=== PATIENT | female | born 1980 | race Caucasian/White ===

== ENCOUNTER → 2020-12-28 08:20 | Outpatient (BNVA) | payer BC, SELFPAY | PROVIDERS: Family Provider Obstetrics & Gynecology; PCP Obstetrics & Gynecology; Visit Provider Obstetrics & Gynecology | DX: Z01.419 Encounter for gynecological examination (general) (routine) without abnormal findings (principal) | CPT/HCPCS: 80061; 82947; 83036; 84443 ==

== ENCOUNTER 2021-01-30 11:21 | Outpatient (CLI) | payer BC, SELFPAY ==
--- NOTE | 2021-01-30 11:30 | MM_ITS ---
WS: [id number] SCREENING DIGITAL MAMMOGRAM WITH CAD HISTORY: Z12.39 - Encounter for other screening for malignant neoplasm of breast COMPARISON: None available. Bilateral CC and MLO views submitted. Computer aided detection analyzed. Breast composition: There are scattered areas of fibroglandular density. Nodule at 12:00 measures 7 m m. Best seen on the CC projection. No calcifications. MM/[place] [id number] IMPRESSION: BI-RADS: 0-Incomplete: Need additional imaging evaluation FOLLOW UP: Need Additional Imaging RIGHT breast: Spot compression views (CC and MLO). True ML. Ultrasound to follo w if abnormality persists.
== END 2021-01-30 11:22 | disposition home or self-care (01) ==
LOC: RADSHAW 11:24
PROVIDERS: Visit Provider Obstetrics & Gynecology
DX: Z12.31 Encounter for screening mammogram for malignant neoplasm of breast (principal); N63.0 Unspecified lump in unspecified breast
CPT/HCPCS: 77067

== ENCOUNTER 2021-02-14 15:25 | Outpatient (CLI) | payer BC, SELFPAY ==
--- NOTE | 2021-02-14 15:30 | MM_ITS ---
WS: [id number] ADDITIONAL VIEWS RIGHT BREAST RIGHT breast ultrasound, limited HISTORY: RT breast density COMPARISON: 01/30/2021 Compression views right CC and MLO projection. True ML also submitted. Asymmetry nearly completely re solves at 12:00. There is very minimal increased fibroglandular tissue but no distortion. RIGHT breast ultrasound, limited. Ultrasound directed to the 12:00 and axilla. There is no mass identified at 12:00. There are benign l ymph nodes in the axilla. MM/[place] [id number] IMPRESSION: BI-RADS: 2-Benign FOLLOW-UP: 1 Year Follow-up
--- NOTE | 2021-02-14 15:45 | US_ITS ---
WS: [id number] ADDITIONAL VIEWS RIGHT BREAST RIGHT breast ultrasound, limited HISTORY: RT breast density COMPARISON: 01/30/2021 Compression views right CC and MLO projection. True ML also submitted. Asymmetry nearly completely re solves at 12:00. There is very minimal increased fibroglandular tissue but no distortion. RIGHT breast ultrasound, limited. Ultrasound directed to the 12:00 and axilla. There is no mass identified at 12:00. There are benign l ymph nodes in the axilla. US/US breast RT limited* [id number] IMPRESSION: BI-RADS: 2-Benign FOLLOW-UP: 1 Year Follow-up
== END 2021-02-14 15:26 | disposition home or self-care (01) ==
LOC: RADSHAW 15:27
PROVIDERS: Visit Provider Obstetrics & Gynecology
DX: N63.10 Unspecified lump in the right breast, unspecified quadrant (principal)
CPT/HCPCS: 76642; 77065

== ENCOUNTER → 2021-12-30 10:56 | Outpatient (BNVA) | payer BC, SELFPAY | PROVIDERS: Visit Provider Obstetrics & Gynecology | DX: Z12.4 Encounter for screening for malignant neoplasm of cervix (principal); Z01.419 Encounter for gynecological examination (general) (routine) without abnormal findings | CPT/HCPCS: 87624 ==

== ENCOUNTER → 2023-02-03 09:00 | Outpatient (BNVA) | payer BC, SELFPAY | PROVIDERS: Visit Provider Nurse Practitioner Women's Health | DX: Z12.4 Encounter for screening for malignant neoplasm of cervix (principal) | CPT/HCPCS: 87624; 88305 ==

== ENCOUNTER → 2023-07-28 17:11 | Outpatient (BNVA) | payer BC, SELFPAY | PROVIDERS: Visit Provider Emergency Medicine | DX: R05.9 Cough, unspecified (principal) | CPT/HCPCS: 71046 ==

== ENCOUNTER 2023-07-28 17:50 | Emergency (ER) | payer BC, SELFPAY ==
[2023-07-28 18:04] VITALS: BP 160/93; PULSE 114; RESP 16; TEMP 36.8; O2SAT 99; BMI 29.0
--- NOTE | 2023-07-28 18:07 | ECG_ITS ---
[facility] Test Date: 2023-07-28 Pat Name: Asiya Lambert Department: Room: Gender: Female Hand Tufter: : 1980 Requested By: Sebastian Wilson Order Number: [id number] Naheed MD: Kermit Rueda M.D. Measurements Intervals [place] Rate: 102 P: 56 [place]: 188 QRS: 45 QRSD: 83 T: 14 QT: 342 QTc: 447 Interpretive Statements SINUS TACHYCARDIA POSSIBLE LEFT ATRIAL ENLARGEMENT [-0.1mV P-WAVE IN V1/V2] NONSPECIFIC T-WAVE ABNORMALITY ABNORMAL RHYTHM ECG No previous ECG available for comparison Electronically Signed On 07-28-2023 21:12:51 CDT by Kermit Rueda M.D. [id number]
[2023-07-28 18:49] LABS: Basophils # 0.1 10^3/uL (0.0-0.1); Basophils % 0.8 %; Eosinophils # 0.3 10^3/uL (0.0-0.8); Eosinophils % 2.7 %; Hematocrit 39.8 % (36-47); Lymphocytes # 2.1 10^3/uL (0.8-4.8); Lymphocytes % 23.1 %; Mean Corpuscular HGB Conc 33.7 g/dL (30-55); Mean Corpuscular Hemoglobin 29.1 pg (27-33); Mean Corpuscular Volume 86.5 fl (85-98); Mean Platelet Volume 9.2 fL (7.4-10.4); Monocytes # 0.5 10^3/uL (0.2-0.9); Monocytes % 5.4 %; Neutrophils # 6.21 10^3/uL (1.8-7.7); Neutrophils % 67.8 %; Nucleated Red Blood Cells % 0 %; Platelet Count 357 10^3/cmm (157-399); Red Cell Distribution Width 13.2 % (12.1-15.1); White Blood Count 9.15 10^3/uL (3.29-11.43)
[2023-07-28 19:20] VITALS: BP 166/108; PULSE 96; RESP 17; O2SAT 100
[2023-07-28 19:24] LABS: Alanine Aminotransferase 10 U/L (0-33); Albumin Level 4.5 g/dL (3.5-5.2); Alkaline Phosphatase 121 U/L (35-105); Anion Gap 13.7 (5-19); Aspartate Amino Transferase 12 U/L (0-32); Blood Urea Nitrogen 13 mg/dL (6-20); Calcium 9.3 mg/dL (8.5-10.5); Carbon Dioxide 24 mmol/L (22-29); Chloride 104 mmol/L (98-107); Globulin 3.5 g/dL (1.3-4.6); Glomerular Filtration Rate 109.6 mL/min (90-130); Glucose 101 mg/dL (65-115); NT Pro B Type Natriuretic Pept 36 pg/mL (0-125); Osmolality Calculated 286 mOsm/kg (285-295); Potassium 3.7 mmol/L (3.5-5.1); Sodium 138 mmol/L (136-145); Total Bilirubin 0.2 mg/dL (0.15-1.2)
[2023-07-28 19:32] LABS: D Dimer <= 0.27 ug/mLFEU (0-0.59)
--- NOTE | 2023-07-28 20:08 | CTR_ITS ---
PROCEDURE INFORMATION: Exam: CT Chest With Contrast; Diagnostic Exam date and time: 07/28/2023 8:45 PM Age: 42 years old Clinical indication: Cough; Additional info: Chronic cough and SOB TECHNIQUE: Imaging protocol: Diagnostic computed tomography of the chest with contrast. Radiation optimization: All CT scans at this facility use at least one of these dose optimization techniques: automated exposure control; mA and/or kV adjustment per patient size (includes targeted exams where dose is matched to clinical indication); or iterative reconstruction. Contrast material: OMNI 350; Contrast volume: 100 ml; Contrast route: INTRAVENOUS (IV); REPORTING DATA: Count of CT and Cardiac NM exams in prior 12 months: This patient has received 0 known CTs and 0 known cardiac nuclear medicine studies in the 12 months prior to the current study. COMPARISON: CR XR chest 2V* [id number] 07/28/2023 5:18 PM RADIATION DOSE METRICS: Total DLP (mGy-cm): 340 FINDINGS: Lungs: There is some minimal scarring or subsegmental atelectasis in the medial aspect of the middle lobe. There is a 3.7 mm sized noncalcified peripheral pulmonary nodule right lower lobe series 3, image number 34.For patients at low risk (minimal or absent history of smoking and of other known risk factors), no routine follow-up is indicated. For patients at high risk (history of smoking or of other known risk factors), consider optional CT Chest at 12 months. (Reference: Linda). No acute pulmonary infiltrate is identified. Pleural spaces: Unremarkable. No pneumothorax. No pleural effusion. Heart: Unremarkable. No cardiomegaly. No pericardial effusion. Lymph nodes: There is no evidence of lymphadenopathy. Vasculature: There is no thoracic aortic aneurysm or dissection. Liver: There are 2 large heterogeneous fat containing lesions left lobe of the liver measuring 3.8 cm and 2 x 3 cm segment 2. These are not fully evaluated on this examination but may represent benign angiomyolipomas. There is a similar 3 cm sized lesion in the periphery of segment 8 of the right lobe in there are possibly additional subcentimeter lesions in both lobes. Consider further evaluation with non urgent MRI without with contrast to better evaluate and characterize these lesions. Bones/joints: Unremarkable. No acute fracture. Soft tissues: Unremarkable. CT/CT chest w con* [id number] IMPRESSION: 1. No acute findings in the chest 2. Multiple indeterminate hepatic lesions as described. Consider follow-up with non urgent MRI. 3. Small noncalcified pulmonary nodule. Follow-up according to Fleischner society guidelines recommended. REFERENCES: Linda Lujan et al. Guidelines for Management of Incidental Pulmonary Nodules Detected on CT Images: From the Fleischner Society 2017. Radiology. 2017;284(1):228-243.
[2023-07-28] MEDS: iohexol 350 mg/mL 500 mL Btl (per mL) IV (20:46)
[2023-07-28 21:20] VITALS: PULSE 101; RESP 18; O2SAT 99
[2023-07-28] MEDS: ipratropium-albuterol 3 mL Neb INHALATION (21:20)
[2023-07-28 21:28] VITALS: PULSE 98; O2SAT 99
[2023-07-28 22:06] VITALS: BP 150/105; PULSE 99; RESP 18; O2SAT 100
[2023-07-28] MEDS: predniSONE 20 mg Tablet 60 MG PO (22:21)
[2023-07-28 22:24] VITALS: PULSE 97; RESP 18; O2SAT 100
--- NOTE | 2023-07-29 12:26 | ED_ITS ---
HPI - General Adult General: Chief complaint: Shortness of Breath/Dyspnea Stated complaint: sent by uc/cough/mass in lung Time Seen by Provider: 07/28/23 19:03 History of Present Illness: This patient is a 42-year-old white female who presents to the emergency department stating that she has had a cough for the past 5 weeks. She has been on 2 courses of antibiotics. She is currently on Levaquin which she has been taking for 6 days and she has 1 more dose to take tomorrow. Patient states she has been tested for COVID which was negative. She had a chest x-ray done earlier today evidently provider was concerned about possible PE or mass. Patient has had some shortness of breath and chest heaviness with the cough. She does not smoke. No history of asthma. Past medical history includes rheumatoid arthritis and migraine headaches. Associated symptoms: Reports chest pain (Heaviness) and dyspnea Review of Systems General: Reports: 10 or more systems reviewed and unremarkable except in HPI and below Card: Reports: chest pain (Heaviness) Resp: Reports: dyspnea and non-productive cough; Denies: wheezing PFSH ED PFSH: Medical History (Updated 07/28/23 @ 22:16 by Salvatore Masters MD) Menstrual migraine Surgical History H/O hernia repair (~1982) Right groin area at 2 years old Family History Mother Hypertension Grandfather CAD (coronary artery disease) maternal Grandmother CAD (coronary artery disease) maternal Father Hyperlipidemia Social History Smoking and tobacco status: never smoked Alcohol intake: current Alcohol intake frequency: holidays/special occasions only Substance/Drug Use: never Physical Exam Const: COMMON NORMALS: no acute distress, patient oriented x3 and well nourished HENMT: COMMON NORMALS: normocephalic, TM's normal bilaterally, Normal external nose present, Normal nasal mucous membranes and turbinates present and oropharynx normal HEAD & SCALP: normocephalic NOSE: Normal external nose present and Normal nasal mucous membranes and turbinates present TYMPANIC MEMBRANE: TM's normal bilaterally Eye: COMMON NORMALS: Equal, round and reactive pupils present, EOMs intact bilaterally and conjunctivae normal CONJUNCTIVA: Yes conjunctivae normal PUPIL: Yes Equal, round and reactive pupils present Neck/C-Spine: COMMON NORMALS: full ROM, no lymphadenopathy, supple and no JVD Chest: COMMONS NORMALS: normal inspection of the chest Resp: COMMON NORMALS: normal respiratory effort and clear to auscultation bilaterally AUSCULTATION: clear to auscultation bilaterally OTHER: Cough Cardio: COMMON NORMALS: no JVD, regular rate, regular rhythm and No murmurs present (Cardio) RATE: regular rate RHYTHM: regular rhythm GI: COMMON NORMALS: Normal to inspection, nondistended, normoactive bowel sounds present, Soft to palpation and non-tender PALPATION: Yes Soft to palpation Extremity: COMMON NORMALS: normal to inspection, no calf tenderness and no pedal edema Neuro: COMMON NORMALS: patient oriented x3 and CN's II-XII intact bilaterally Skin: COMMON NORMALS: no rashes or lesions noted GENERAL SKIN EXAM: no rash es or lesions noted Course Vital Signs: Vital signs: Vital Signs Temperature 98.2 F 07/28/23 18:04 Pulse Rate 97 07/28/23 22:24 Respiratory Rate 18 07/28/23 22:24 Blood Pressure 150/105 07/28/23 22:06 Pulse Oximetry 100 07/28/23 22:24 Oxygen Delivery Me thod Room Air 07/28/23 22:06 [facility] - General Adult Medical Decision Making Chest x-ray did not reveal any infiltrates. No masses. No cardiomegaly or pleural effusions. CBC and CMP were normal. BNP was normal at 36. D-dimer normal at less than 0.27. CT scan of the chest was read by the radiologist as normal. Patient was given a DuoNeb treatment which she states did help somewhat. I did place her on an albuterol metered-dose inhaler and prednisone burst and taper. Recommended she follow-up with her primary care physician within 1 week for recheck. If this does not resolve she may need referral to pulmonology. She was discharged in stable condition. Lab Data 07/28/23 18:43 07/28/23 18:[address] 07/28/23 20:08 IMPRESSION: 1. No acute findings in the chest 2. Multiple indeterminate hepatic lesions as described. Consider follow-up with non urgent MRI. 3. Small noncalcified pulmonary nodule. Follow-up according to Fleischner society guidelines recommended. REFERENCES: Linda Lujan, et al. Guidelines for Management of Incidental Pulmonary Nodules Detected on CT Images: From the Fleischner Society 2017. Radiology. 2017;284(1):228-243. Laboratory Results WBC 9.15 10^3/uL (3.29-11.43) 07/28/23 18:43 RBC 4.60 10^6/uL (3.85-5.65) 07/28/23 18:43 Hgb 13.40 g/dL (11.27-16.99) 07/28/23 18:43 Hct 39.8 % (36-47) 07/28/23 18:43 MCV 86.5 fl (85-98) 07/28/23 18:43 MCH 29.1 pg (27-33) 07/28/23 18:43 MCHC 33.7 g/dL (30-55) 07/28/23 18:43 RDW 13.2 % (12.1-15.1) 07/28/23 18:43 Plt Count 357 10^3/cmm (157-399) 07/28/23 18:43 MPV 9.2 fL (7.4-10.4) 07/28/23 18:43 Neut % (Auto) 67.8 % 07/28/23 18:43 Lymph % (Auto) 23.1 % 07/28/23 18:43 [place] % (Auto) 5.4 % 07/28/23 18:43 Eos % (Auto) 2.7 % 07/28/23 18:43 Baso % (Auto) 0.8 % 07/28/23 18:43 Neut # (Auto) 6.21 10^3/uL (1.8-7.7) 07/28/23 18:43 Lymph # (Auto) 2.1 10^3/uL (0.8-4.8) 07/28/23 18:43 [place] # (Auto) 0.5 10^3/uL (0.2-0.9) 07/28/23 18:43 Eos # (Auto) 0.3 10^3/uL (0.0-0.8) 07/28/23 18:43 Baso # (Auto) 0.1 10^3/uL (0.0-0.1) 07/28/23 18:43 Nucleated RBC % (auto) 0 % 07/28/23 18:43 Nucleated RBCs # 0.0 /100WBC 07/28/23 18:43 D-Dimer <= 0.27 ug/mLFEU (0-0.59) 07/28/23 18:43 Sodium 138 mmol/L (136-145) 07/28/23 18:43 Potassium 3.7 mmol/L (3.5-5.1) 07/28/23 18:43 Chloride 104 mmol/L (98-107) 07/28/23 18:43 Carbon Dioxide 24 mmol/L (22-29) 07/28/23 18:43 Anion Gap 13.7 (5-19) 07/28/23 18:43 BUN 13 mg/dL (6-20) 07/28/23 18:43 Creatinine 0.6 mg/dL (0.5-0.9) 07/28/23 18:43 GFR Calculation 109.6 mL/min (90-130) 07/28/23 18:43 Glucose 101 mg/dL (65-115) 07/28/23 18:43 Calculated Osmolality 286 mOsm/kg (285-295) 07/28/23 18:43 Calcium 9.3 mg/dL (8.5-10.5) 07/28/23 18:43 Total Bilirubin 0.2 mg/dL (0.15-1.2) 07/28/23 18:43 AST 12 U/L (0-32) 07/28/23 18:43 ALT 10 U/L (0-33) 07/28/23 18:43 Alkaline Phosphatase 121 U/L (35-105) H 07/28/23 18:43 NT-Pro-B Natriuret Pep 36 pg/mL (0-125) 07/28/23 18:43 Total Protein 8.0 g/dL (6.6-8.7) 07/28/23 18:43 Albumin 4.5 g/dL (3.5-5.2) 07/28/23 18:43 Globulin 3.5 g/dL (1.3-4.6) 07/28/23 18:43 All radiology interpretation(s) finalized by discharge Discharge Plan Discharge Patient Disposition: Home Clinical Impression: Chronic cough Condition: Stable Prescriptions: New albuterol sulfate 90 mcg/actuation HFA aerosol inhaler 2 inh inhalation Q6H PRN (Reason: shortness of breath or wheezing) Qty: 8.5 0RF prednisone 5 mg tablets,dose pack See Rx Instructions .ROUTE .COMPLEX Qty: 21 0RF Rx Instructions: prednisone 5 mg: take 8 tablets (40 mg) on Day 1; 7 tablets (35 mg) on Day 2; then decrease by 1 tablet every day until finished No Action norethindrone ac-eth estradiol [11/21 ()] 1-20 mg-mcg tablet 1 tab PO DAILY Qty: 84 5RF fluconazole [Diflucan] 150 mg tablet 150 mg PO Q3D Qty: 2 0RF levofloxacin 750 mg tablet 750 mg PO DAILY 7 Days Qty: 7 0RF [id number] [Bromfed DM] 2-30-10 mg/5 mL syrup 10 ml PO Q6H PRN (Reason: cold symptoms) Qty: 200 0RF oxybutynin chloride 5 mg tablet See Rx Instructions .ROUTE .COMPLEX Qty: 90 0RF Dose Instruction: TAKE 1 TABLET BY MOUTH DAILY Rx Instructions: TAKE 1 TABLET BY MOUTH DAILY Discharge Orders: Discharge ED (Routine); Ordered 07/28/23 Ordered By: Salvatore Masters Coding Level of Care Code ED Measurement And Verification Engineer for Susie Samuel
== END 2023-07-28 22:27 | disposition home or self-care (01) ==
PROVIDERS: Emergency Medicine; Emergency Provider Emergency Medicine
DX: R05.3 Chronic cough (principal)
CPT/HCPCS: 36415; 71260; 80053; 83880; 85025; 85378; 93005; 94640; 99285; J7512; Q9967

== ENCOUNTER 2024-04-19 09:50 | Emergency (ER) | payer BC, SELFPAY ==
[2024-04-19 10:02] VITALS: BP 170/96; PULSE 106; RESP 20; TEMP 36.8; O2SAT 100; BMI 29.0
[2024-04-19 11:03] VITALS: BP 165/114; O2SAT 98
--- NOTE | 2024-04-19 11:33 | ECG_ITS ---
[facility] Test Date: 2024-04-19 Pat Name: Asiya Lambert Department: Room: Gender: Female Staff Rn: : 1980 Requested By: Sebastian Wilson Order Number: [id number] Naheed MD: Jim Schneider M.D. Measurements Intervals [place] Rate: 100 P: 57 [place]: 177 QRS: 52 QRSD: 86 T: -9 QT: 339 QTc: 439 Interpretive Statements SINUS TACHYCARDIA POSSIBLE LEFT ATRIAL ENLARGEMENT [-0.1mV P-WAVE IN V1/V2] POSSIBLE LEFT VENTRICULAR HYPERTROPHY [VOLTAGE CRITERIA PLUS LAE OR QRS WIDENING] NONSPECIFIC T-WAVE ABNORMALITY INTERPRETATION BASED ON A DEFAULT AGE OF 40 YEARS Compared to ECG 07/28/2023 18:12:10 No significant changes Electronically Signed On 04-22-2024 13:22:10 CDT by Jim Schneider M.D. [email or web address]
--- NOTE | 2024-04-19 11:40 | ED_ITS ---
HPI - Headache 2 General: Chief Complaint: Headache Stated Complaint: high B/P, Jaw pain sent by Time Seen by Provider: 04/19/24 10:08 Source: patient Mode of arrival: ambulatory History of Present Illness: 43-year-old female presents to the emerg ency room with complaint of elevated blood pressure and headache. Said symptoms for the last 4 days now. MD elicited complaint: headache Associated symptoms: Deny chest pain, fever(s) or rash Review of Systems 2 Const: Denies: fever(s) or chills Card: Denies: chest pain Resp: Denies: dyspnea GI: Denies: abdominal pain : Denies: dysuria, urinary frequency or urinary urgency Musc: Denies: neck pain or back pain Skin/Breast: Denies: rash Neuro: Reports: headache(s) PFSH ED 2 PFSH: Medical History Menstrual migraine Surgical History H/O hernia repair (~1982) Right groin area at 2 years old Family History Mother Hypertension Grandfather CAD (coronary artery disease) maternal Grandmother CAD (coronary artery disease) maternal Father Hyperlipidemia Social History Smoking and tobacco/nicotine status: never used tobacco/nicotine Alcohol intake: current Alcohol intake frequency: holidays/special occasions only Substance/Drug Use: never Physical Exam 2 Const: GENERAL APPEARANCE: cooperative and comfortable O RIENTATION/CONSCIOUSNESS: Yes awake, Yes oriented to person, Yes oriented to place and Yes oriented to time HENMT: COMMON NORMALS: normocephalic, atraumatic and hearing grossly normal bilaterally HEAD & SCALP: normocephalic and atraumatic Resp: COMMON NORMALS: normal respiratory effort, No retractions, No use of accessory muscles and clear to auscultation bilaterally AUSCULTATION: clear to auscultation bilaterally Cardio: COMMON NORMALS: regular rate, regular rhythm and No murmurs present (Cardio) RATE: regular rate RHYTHM: regular rhythm GI: COMMON NORMALS: Soft to palpation and No hepatosplenomegaly present A USCULTATION: Yes normoactive bowel sounds PALPATION: Yes Soft to palpation, No Tenderness to palpation present (GI), No Guarding due to palpation present (GI) and Yes No hepatosplenomegaly present Extremity: COMMON NORMALS: normal to inspection, capillary refill normal, no clubbing, cyanosis or edema, no calf tenderness and no pedal edema Neuro: SENSORIUM/ORIENTATION: Yes oriented to person, Yes oriented to place and Yes oriented to time OTHER: No focal neurologic deficits are noted. Skin: COMMON NORMALS: no rashes or lesions noted GENERAL SKIN EXAM: no rashes or lesions noted Course 2 Vital Signs: Vital signs: Vital Signs Temperature 98.3 F 04/19/24 10:02 Pulse Rate 86 04/19/24 14:12 Respiratory Rate 20 H 04/19/24 10:02 Blood Pressure 147/89 04/19/24 14:12 Pulse Oximetry 98 04/19/24 14:12 Oxygen Delivery Me thod Room Air 04/19/24 14:12 MDM - Headache Medical Decision Making Blood pressure improved and headache improved with medications sent. She not having any chest discomfort. Will go ahead and discharge her home on a started on Topamax can use promethazine for breakthrough headaches also start her on amlodipine 10 mg daily she should follow-up with her primary care doctor to reevaluate efficacy of both of these medicines return if she has further problems. EKG and labs reviewed as found in the chart. Medical Records I reviewed the patient's medical records. Lab Data I reviewed the patient's lab results. 04/19/24 12:05 04/19/24 12:05 Laboratory Results WBC 7.77 10^3/uL (3.29-11.43) 04/19/24 12:05 RBC 4.73 10^6/uL (3.85-5.65) 04/19/24 12:05 Hgb 13.40 g/dL (11.27-16.99) 04/19/24 12:05 Hct 41.2 % (36-47) 04/19/24 12:05 MCV 87.1 fl (85-98) 04/19/24 12:05 MCH 28.3 pg (27-33) 04/19/24 12:05 MCHC 32.5 g/dL (30-55) 04/19/24 12:05 RDW 13.1 % (12.1-15.1) 04/19/24 12:05 Plt Count 396 10^3/cmm (157-399) 04/19/24 12:05 MPV 9.0 fL (7.4-10.4) 04/19/24 12:05 Neut % (Auto) 75.4 % 04/19/24 12:05 Lymph % (Auto) 17.1 % 04/19/24 12:05 [place] % (Auto) 5.3 % 04/19/24 12:05 Eos % (Auto) 1.2 % 04/19/24 12:05 Baso % (Auto) 0.9 % 04/19/24 12:05 Neut # (Auto) 5.86 10^3/uL (1.8-7.7) 04/19/24 12:05 Lymph # (Auto) 1.3 10^3/uL (0.8-4.8) 04/19/24 12:05 [place] # (Auto) 0.4 10^3/uL (0.2-0.9) 04/19/24 12:05 Eos # (Auto) 0.1 10^3/uL (0.0-0.8) 04/19/24 12:05 Baso # (Auto) 0.1 10^3/uL (0.0-0.1) 04/19/24 12:05 Nucleated RBC % (auto) 0 % 04/19/24 12:05 Nucleated RBCs # 0.0 /100WBC 04/19/24 12:05 Sodium 137 mmol/L (136-145) 04/19/24 12:05 Potassium 3.7 mmol/L (3.5-5.1) 04/19/24 12:05 Chloride 102 mmol/L (98-107) 04/19/24 12:05 Carbon Dioxide 23 mmol/L (22-29) 04/19/24 12:05 Anion Gap 15.7 (5-19) 04/19/24 12:05 BUN 8 mg/dL (6-20) 04/19/24 12:05 Creatinine 0.4 mg/dL (0.5-0.9) L 04/19/24 12:05 GFR Calculation 174.2 mL/min (90-130) H 04/19/24 12:05 Glucose 91 mg/dL (65-115) 04/19/24 12:05 Calculated Osmolality 282 mOsm/kg (285-295) L 04/19/24 12:05 Calcium 9.2 mg/dL (8.5-10.5) 04/19/24 12:05 Total Bilirubin 0.2 mg/dL (0.15-1.2) 04/19/24 12:05 AST 12 U/L (0-32) 04/19/24 12:05 ALT 11 U/L (0-33) 04/19/24 12:05 Alkaline Phosphatase 130 U/L (35-105) H 04/19/24 12:05 Total Protein 8.1 g/dL (6.6-8.7) 04/19/24 12:05 Albumin 4.5 g/dL (3.5-5.2) 04/19/24 12:05 Globulin 3.6 g/dL (1.3-4.6) 04/19/24 12:05 Urine Color Yellow (Yellow) 04/19/24 12:54 Urine Appearance Clear (CLEAR) 04/19/24 12:54 Urine pH 8 (5-7) H 04/19/24 12:54 Ur Specific [place] 1.010 (1.005-1.030) 04/19/24 12:54 Urine Protein Neg (Negative) 04/19/24 12:54 Urine Glucose (UA) Norm (Normal) 04/19/24 12:54 Urine Ketones Negative (Negative) 04/19/24 12:54 Urine Blood 2+ (Negative) H 04/19/24 12:54 Urine Nitrate Negative (Negative) 04/19/24 12:54 Urine Bilirubin Neg (Negative) 04/19/24 12:54 Prot Sulfosalicylic Acd Positive (Negative) 04/19/24 12:54 Urine Urobilinogen Norm mg/dL (Negative) 04/19/24 12:54 Ur Leukocyte Esterase Trace (Negative) H 04/19/24 12:54 Urine RBC 0-4 /hpf (0-2) H 04/19/24 12:54 Urine WBC 0-4 /hpf (0-5) H 04/19/24 12:54 Ur Squamous Epith Cells 0-4 /hpf (0-5) H 04/19/24 12:54 Ur Transition Epith Cell 0-4 /hpf 04/19/24 12:54 Amorphous Sediment Not Reportable 04/19/24 12:54 Urine Bacteria 2+ /hpf (NONE) H 04/19/24 12:54 Urine Mucus None /hpf 04/19/24 12:54 Ur Oval Fat Bodies 1+ /hpf 04/19/24 12:54 No radiology studies performed this visit Discharge Plan Discharge Patient Disposition: Home Clinical Impression: Headache, Migraine Condition: Stable Prescriptions: New amlodipine 10 mg tablet 10 mg PO DAILY Qty: 30 0RF Topamax 25 mg tablet 25 mg PO DAILY 30 Days Qty: 30 0RF promethazine 25 mg tablet 25 mg PO Q6H PRN (Reason: nausea and vomiting/headache) Qty: 20 0RF No Action norethindrone ac-eth estradiol [11/21 (21)] 1-20 mg-mcg tablet 1 tab PO DAILY Qty: 84 5RF Discharge Orders: Discharge ED (Routine); Ordered 04/19/24 Ordered By: Sebastian Medrano Discharge Diet: Usual diet Discharge Activity: Increase activity as tolerated Patient Instructions: Opioid Safety, Pain Management Coding Level of Care Code ED Sailor for Susie Samuel
[2024-04-19] MEDS: labetalol 5 mg/mL SDV 20mL 10 MG IVP (12:03)
[2024-04-19] MEDS: metoclopramide 5 mg/mL SDV 2 mL 10 MG IVP (12:06)
[2024-04-19] MEDS: hyDRALAzine 20 mg/mL INJ 1 mL 5 MG IVP (12:08)
[2024-04-19] MEDS: ketorolac 30 mg/mL INJ 15 MG IVP (12:09)
[2024-04-19] MEDS: valproic acid inj 500 MG in sodium chloride 0.9% 50 ML 55 MG IV (12:12)
[2024-04-19 12:20] LABS: Basophils # 0.1 10^3/uL (0.0-0.1); Basophils % 0.9 %; Eosinophils # 0.1 10^3/uL (0.0-0.8); Eosinophils % 1.2 %; Hematocrit 41.2 % (36-47); Lymphocytes # 1.3 10^3/uL (0.8-4.8); Lymphocytes % 17.1 %; Mean Corpuscular HGB Conc 32.5 g/dL (30-55); Mean Corpuscular Hemoglobin 28.3 pg (27-33); Mean Corpuscular Volume 87.1 fl (85-98); Monocytes # 0.4 10^3/uL (0.2-0.9); Monocytes % 5.3 %; Neutrophils # 5.86 10^3/uL (1.8-7.7); Neutrophils % 75.4 %; Nucleated Red Blood Cells % 0 %; Platelet Count 396 10^3/cmm (157-399); Red Blood Count 4.73 10^6/uL (3.85-5.65); Red Cell Distribution Width 13.1 % (12.1-15.1); White Blood Count 7.77 10^3/uL (3.29-11.43)
[2024-04-19 12:38] LABS: Alanine Aminotransferase 11 U/L (0-33); Albumin Level 4.5 g/dL (3.5-5.2); Alkaline Phosphatase 130 U/L (35-105); Anion Gap 15.7 (5-19); Aspartate Amino Transferase 12 U/L (0-32); Blood Urea Nitrogen 8 mg/dL (6-20); Calcium 9.2 mg/dL (8.5-10.5); Carbon Dioxide 23 mmol/L (22-29); Chloride 102 mmol/L (98-107); Creatinine Clr Calc Pharmacy 195.3573; Globulin 3.6 g/dL (1.3-4.6); Glomerular Filtration Rate 174.2 mL/min (90-130); Glucose 91 mg/dL (65-115); Osmolality Calculated 282 mOsm/kg (285-295); Potassium 3.7 mmol/L (3.5-5.1); Sodium 137 mmol/L (136-145); Total Bilirubin 0.2 mg/dL (0.15-1.2); Total Protein 8.1 g/dL (6.6-8.7)
[2024-04-19 13:15] LABS: Add Urine Microscopic? YES; Bilirubin Urine Neg (Negative); Blood Urine 2+ (Negative); Glucose Urine UA Norm (Normal); Ketones Urine Negative (Negative); Leukocyte Esterase Urine Trace (Negative); Nitrate Urine Negative (Negative); Protein Urine Neg (Negative); Sulfosalicylic Acid Urine Positive (Negative); Urine Appearance Clear (CLEAR); Urine Color Yellow (Yellow); Urobilinogen Urine Norm (Negative); pH Urine 8 (5-7)
[2024-04-19 13:18] VITALS: BP 151/88; PULSE 82; O2SAT 99
[2024-04-19 13:18] LABS: Bacteria Urine 2+ /hpf; Oval Fat Bodies Urine 1+ /hpf; RBC Urine 0-4 /hpf (0-2); Squamous Epithelial Cell Urine 0-4 /hpf (0-5); Transitional Epi Cells Urine 0-4 /hpf; WBC Urine 0-4 /hpf (0-5)
[2024-04-19 13:19] LABS: Add Urine Culture? Yes
[2024-04-19 14:12] VITALS: BP 147/89; PULSE 86; O2SAT 98
== END 2024-04-19 15:12 | disposition home or self-care (01) ==
PROVIDERS: Emergency Provider Family Medicine
DX: G43.909 Migraine, unspecified, not intractable, without status migrainosus (principal)
CPT/HCPCS: 36415; 80053; 81001; 85025; 87077; 87086; 87186; 93005; 96365; 96366; 96375; 99284; J0360; J1885; J2765; J3490

== ENCOUNTER → 2024-04-28 08:42 | Outpatient (BNVA) | payer BC, SELFPAY | PROVIDERS: PCP Nurse Practitioner Family; Visit Provider Nurse Practitioner Family | DX: R39.9 Unspecified symptoms and signs involving the genitourinary system | CPT/HCPCS: 81000 ==